=== PATIENT | female | born 1995 | race Asian ===

== ENCOUNTER 2022-05-05 07:57 | Day surgery (SDC) | payer BC ==
[2022-05-03 11:47] VITALS: BMI 23.9
[2022-05-05 09:53] LABS: BHCG - Serum Negative (NEGATIVE); Pregs Control Background? CLEAR/WHITE (CLR/WHITE); Pregs Control Bar Appear? YES (CONTROL BAR)
== END 2022-05-05 10:44 | disposition home or self-care (01) ==
LOC: CSHSDC 07:57
PROVIDERS: ATTEND Internal Medicine Gastroenterology
PROC: 0DJ08ZZ Inspection of Upper Intestinal Tract, Via Natural or Artificial Opening Endoscopic (ICD-10-PCS; principal; 2022-05-05)
DX: R10.9 Unspecified abdominal pain (principal); R11.2 Nausea with vomiting, unspecified; Z79.3 Long term (current) use of hormonal contraceptives; Z79.890 Hormone replacement therapy
CPT/HCPCS: 76700; 84703; J2250; J2704

== ENCOUNTER 2022-05-05 08:12 | Outpatient (CLI) | payer BC ==
[2022-05-05] MEDS ORDERED: Midazolam HCl 2 mg/2 ml Vial ONE (10:03)
[2022-05-05] MEDS ORDERED: PROPOFOL 20 ML ONE (10:03)
== END 2022-05-05 08:13 | disposition home or self-care (01) ==
LOC: CSHULT 08:12
PROVIDERS: ATTEND Internal Medicine Gastroenterology
DX: R10.9 Unspecified abdominal pain (principal); K80.20 Calculus of gallbladder without cholecystitis without obstruction
CPT/HCPCS: 76700; J2250; J2704